=== PATIENT | male | born 1980 | race Caucasian/White ===

== ENCOUNTER 2018-08-02 12:22 | Emergency (ER) | payer BC, OTHER ==
[~2018-08-02] VITALS: Ht 182.9 cm; Wt 109.5 kg
[2018-08-02 12:53] LABS: BASOPHILS # (AUTO) 0.03 x10^3/uL (0-0.1); BASOPHILS % (AUTO) 1 % (0-1); EOSINOPHILS # (AUTO) 0.03 x10^3/uL (0-0.4); EOSINOPHILS % (AUTO) 1 % (1-7); LYMPHOCYTES # (AUTO) 1.73 x10^3/uL (1-3.4); LYMPHOCYTES % (AUTO) 28 % (22-44); MD NO; MEAN CORPUSCULAR HEMOGLOBIN 30.5 pg (27.5-34.5); MEAN CORPUSCULAR VOLUME 89.8 fL (81-97); MEAN PLATELET VOLUME 8.4 fL (7.4-10.4); MONOCYTES # (AUTO) 0.32 x10^3/uL (0.2-0.8); MONOCYTES % (AUTO) 5 % (2-9); NEUTROPHILS # (AUTO) 4.06 x10^3/uL (1.8-6.8); NEUTROPHILS % (AUTO) 66 % (42-75); PLATELET COUNT 233 x10^3/uL (130-400); RED BLOOD COUNT 5.77 x10^6/uL (4.38-5.82); RED CELL DISTRIBUTION WIDTH 12.5 % (9.4-14.8)
[2018-08-02 13:04] LABS: ALANINE AMINOTRANSFERASE 32 U/L (12-78); ALBUMIN 4.5 g/dL (3.4-5.0); ANION GAP 8 mmol/L (5-15); CALCIUM 9.1 mg/dL (8.5-10.1); CHLORIDE 105 mmol/L (98-107); CREATININE 1.09 mg/dL (0.7-1.3)
[2018-08-02 13:06] LABS: ALKALINE PHOSPHATASE 70 U/L (45-117); BILIRUBIN,TOTAL 0.8 mg/dL (0.2-1.0); TOTAL PROTEIN 8.3 g/dL (6.4-8.2)
--- NOTE | 2018-08-02 14:04 | NUR ---
[facility]
--- NOTE | 2018-08-02 14:22 | NUR ---
FIRST CONTACT WITH PT. PT SITTING UP IN [facility], NAD NOTED. PT CO WORSENING LUQ PAIN, RADIATING TO RUQ. ABD NON-TENDER TO PALPATION; +NAUSEA/DIARRHEA. DENIES CP/FEVER/SOB/URINARY SYMPTOMS/BLOOD IN EMESIS OR STOOL. PT REPORTS BEING SEEN IN [facility] FOR SAME WO DEFINITIVE DIAGNOSIS. BP/SPO2 MONITORING IN PLACE. FAMILY AT BEDSIDE. AWAITING ORDERS.
[2018-08-02] MEDS ORDERED: MAALOX/HYOSCYAMINE/LIDOCAINE 45 ML BTL PO ONE (14:30)
[2018-08-02] MEDS ORDERED: MAALOX/HYOSCYAMINE/LIDOCAINE 45 ML BTL ONE (14:47)
[2018-08-02 15:01] VITALS: BP 132/73
--- NOTE | 2018-08-02 16:02 | NUR ---
PT REPORTS IMPROVEMENT IN PAIN WITH MEDICATIONS. DC EDUCATION PROVIDED, PT DEMONSTRATS UNDERSTANDING. PT AMBULATED STEADILY TO DC WITH RN AND FAMILY
== END 2018-08-02 16:04 | disposition home or self-care (01) ==
LOC: ED 15:10
DX: G89.29 Other chronic pain (principal); R10.12 Left upper quadrant pain; K21.9 Gastro-esophageal reflux disease without esophagitis
CPT/HCPCS: 36415; 71045; 76700; 80053; 83690; 85025; 93005; 99284